=== PATIENT | female | born 1965 | race Caucasian/White ===

== ENCOUNTER 2022-10-15 10:03 | Day surgery (SDC) | payer BC ==
[2022-10-14 15:21] VITALS: BMI 18.0
[2022-10-15] MEDS ORDERED: ROCURONIUM BROMIDE 50 MG/5 ML SYRINGE ONE ×2 (11:57→13:31)
[2022-10-15] MEDS ORDERED: PROPOFOL 20 ML ONE (11:57)
[2022-10-15] MEDS ORDERED: MIDAZOLAM HCL 2 MG/2 ML SINGLE DOSE VIAL ONE (11:58)
[2022-10-15] MEDS ORDERED: BUPIVACAINE HCL/EPINEPHRINE/PF 30 ML VIAL IJ ONE (12:01)
[2022-10-15] MEDS ORDERED: EPINEPHrine/PF 1 MG/1 ML (1:1,000) AMPULE ONE (12:05)
[2022-10-15] MEDS ORDERED: LIDOCAINE HCL 2% (20ML MULTI-DOSE VIAL) ONE (12:05)
[2022-10-15] MEDS ORDERED: SODIUM BICARBONATE 8.4% 50 MEQ/50 ML VIAL ONE (12:05)
[2022-10-15] MEDS ORDERED: SCOPOLAMINE HYDROBROMIDE 1 PATCH PATCH.TD72 ONE (12:09)
[2022-10-15] MEDS ORDERED: PROPOFOL 40 ML ONE (12:14)
[2022-10-15] MEDS ORDERED: BUPIVACAINE 0.25% /EPI 1:200,000 10 ML VIAL NR ONE (12:51)
[2022-10-15] MEDS ORDERED: GLYCOPYRROLATE 0.2 MG/1 ML VIAL ONE ×2 (12:55→14:31)
[2022-10-15] MEDS ORDERED: PROPOFOL 60 ML ONE (13:48)
[2022-10-15] MEDS ORDERED: NEOSTIGMINE METHYLSULFATE 0.5 MG/1 ML - 10 ML MDV ONE (14:31)
[2022-10-15] MEDS ORDERED: oxyCODONE HCL 5 MG TABLET PO PRN ×2 (14:48)
[2022-10-15] MEDS ORDERED: ACETAMINOPHEN 325 MG TABLET (FP) PO PRN (14:48)
[2022-10-15] MEDS ORDERED: ONDANSETRON 4 MG/2 ML VIAL IVPUSH PRN (14:48)
[2022-10-15] MEDS ORDERED: PROMETHAZINE HCL 25 MG/1 ML VIAL IVPUSH PRN (14:48)
[2022-10-15 15:04] VITALS: TEMP 97.6
[2022-10-15 15:35] VITALS: RESP 16
[2022-10-15 16:21] VITALS: BP 116/68; PULSE 47
== END 2022-10-15 17:00 | disposition home or self-care (01) ==
LOC: FASU 10:03
PROVIDERS: ATTEND Plastic Surgery
PROC: 0HBLXZX Excision of Left Lower Leg Skin, External Approach, Diagnostic (ICD-10-PCS; 2022-10-15)
PROC: 0HBKXZX Excision of Right Lower Leg Skin, External Approach, Diagnostic (ICD-10-PCS; 2022-10-15)
PROC: 0HRV37Z Replacement of Bilateral Breast with Autologous Tissue Substitute, Percutaneous Approach (ICD-10-PCS; principal; 2022-10-15 12:51)
PROC: 0HX5XZZ Transfer Chest Skin, External Approach (ICD-10-PCS; 2022-10-15 12:51)
DX: C50.912 Malignant neoplasm of unspecified site of left female breast (principal); Z90.13 Acquired absence of bilateral breasts and nipples; N65.0 Deformity of reconstructed breast; L91.0 Hypertrophic scar; L90.5 Scar conditions and fibrosis of skin
CPT/HCPCS: 94760